=== PATIENT | male | born 1970 | race Caucasian/White ===

== ENCOUNTER 2021-08-20 09:36 | Emergency (ER) | payer SELFPAY ==
[2021-08-20] MEDS ORDERED: FAMOTIDINE 20 MG/2 ML VIAL IV ONE (10:18)
[2021-08-20] MEDS ORDERED: dexAMETHasone 10 MG/ML VIAL ONE (10:18)
[2021-08-20] MEDS ORDERED: NA CHLORIDE 0.9% 1,000 ML ONE (10:18)
--- NOTE | 2021-08-20 12:14 | EDPHYS ---
Physician Documentation [facility] Name: Thierry Shah Age: 50 yrs Sex: Male : 1970 Arrival Date: 08/20/2021 Time: 09:36 Bed 7 Private MD: ED Physician Viky Espino HPI: 08/20 12:11 This 50 yrs old Male presents to ER via Ambulatory with complaints of jmm Allergic Reaction. 12:11 The patient presents with rash. Onset: The symptoms/episode began/occurred gradually, jmm this morning. Associated signs and symptoms: Pertinent positives: rash. Possible causes: The patient has no known obvious cause for the symptoms. The patient has experienced similar episodes in the past. Historical: - Allergies: 09:47 Codeine; aa5 - PMHx: 09:47 GERD; aa5 - PSHx: 09:47 Lymph node removed from leg; aa5 - Immunization history:: Client reports having NOT received the Covid vaccine. - Social history:: Smoking status: Patient denies any tobacco usage or history of. ROS: 12:11 Constitutional: Negative for fever, chills, and weight loss, Cardiovascular: Negative jmm for chest pain, palpitations, and edema, Respiratory: Negative for shortness of breath, cough, wheezing, and pleuritic chest pain. 12:11 Skin: Positive for rash. 12:11 All other systems are negative. Exam: 12:11 Constitutional: This is a well developed, well nourished patient who is awake, alert, jmm and in no acute distress. Head/Face: atraumatic. Eyes: EOMI, no conjunctival erythema appreciated ENT: Moist Mucus Membranes Neck: Trachea midline, Supple Chest/axilla: Normal chest wall appearance and motion. Cardiovascular: Regular rate and rhythm. No edema appreciated Respiratory: Normal respirations, no respiratory distress appreciated Abdomen/GI: Non distended, soft Back: Normal ROM 12:11 Skin: and is diffusely located. 12:11 Neuro: Orientation: is normal, Mentation: is normal, Memory: is normal. 12:11 Psych: Behavior/mood is pleasant, cooperative. Vital Signs: 09:38 Pulse 73; Resp 18 S; Temp 97.8(TE); Pulse Ox 99% on R/A; Weight 113.4 kg (R); Height 5 aa5 ft. 11 in. (180.34 cm) (R); 09:39 BP 108 / 68; ap3 10:29 BP 95 / 77; Pulse 96; Resp 17; Pulse Ox 100% on R/A; ap3 12:03 BP 108 / 68; Pulse 62; Resp 18; Pulse Ox 97% on R/A; ap3 09:38 Body Mass Index 34.87 (113.40 kg, 180.34 cm) aa5 MDM: 09:43 Patient medically screened. [facility] 12:12 Data reviewed: vital signs, nurses notes. Counseling: I had a detailed discussion with jm the patient and/or guardian regarding: the historical points, exam findings, and any diagnostic results supporting the discharge/admit diagnosis, the need for outpatient follow up, to return to the emergency department if symptoms worsen or persist or if there are any questions or concerns that arise at home. Response to treatment: the patient's symptoms have resolved after treatment. 08/20 09:44 Order name: Saline Lock; Complete Time: :57 [facility] Administered Medications: :57 Drug: NS 0.9% 1000 ml Route: IV; Rate: 1 bolus; Site: left antecubital; ss 12:32 Follow up: IV Status: Completed infusion; IV Intake: 1000ml bp 10:00 Drug: Pepcid (famotidine) 20 mg Route: IVP; Site: left antecubital; ap3 12:33 Follow up: Response: Marked relief of symptoms bp 10:00 Drug: Decadron - Dexamethasone 10 mg Route: IVP; Site: left antecubital; ap3 12:33 Follow up: Response: Marked relief of symptoms bp Disposition Summary: 08/20/21 12:13 Discharge Ordered Location: Home [facility] Condition: Stable [facility] Diagnosis - Rash and other nonspecific skin eruption [facility] Followup: m - With: Private Physician - When: 2 - 3 days - Reason: Recheck today's complaints, Continuance of care, Re-evaluation by your physician Discharge Instructions: - Discharge Summary Sheet [facility] - Allergies, Adult [facility] Forms: - Medication Reconciliation Form [facility] - Thank You Letter [facility] - Antibiotic Education jmm - Prescription Opioid Use [facility] Prescriptions: - EpiPen 0.3 mg/0.3 mL Injection auto-injector - inject 0.3 milliliter by INTRAMUSCULAR route as directed as needed for jmm anaphylaxis; 1 Pen Needle; Refills: 0, Product Selection Permitted - Hydroxyzine HCl 25 mg Oral Tablet - take 1 tablet by ORAL route every 6 hours As needed; 30 tablet; Refills: 0, [facility] Product Selection Permitted - Prednisone 20 mg Oral Tablet - take 3 tablets by ORAL route once daily for 5 days; 15 tablet; Refills: 0, [facility] Product Selection Permitted Addendum: 08/22/2021 23:04 Co-signature as Attending Physician, Viky Espino MD PA/DRILL DOCTOR's history reviewed, m a2 patient interviewed, and examined. I agree with assessment and care plan and confirm the diagnosis (es) above. Signatures: Ladarius Tran PA PA jmm Calderon, Audri, RN RN aa5 Rupal Stacy RN RN ss Viky Espino MD MD ma2 Nicole Pendleton RN RN ap3 Semaj Daniels RN bp
--- NOTE | 2021-08-20 12:14 | ER ---
Nurse's Notes [facility] Name: Thierry Shah Age: 50 yrs Sex: Male : 1970 Arrival Date: 08/20/2021 Time: 09:36 Bed 7 Private MD: Diagnosis: Rash and other nonspecific skin eruption Presentation: 08/20 09:38 Chief complaint: Patient states: "I woke up itching all over, my tongue feels swollen, aa5 my chest feels tight, and I almost passed out". Pt reports hx of allergic reactions and states "I took almost half a bottle of children's Benadryl already". Pt currently denies SOB. Equal and unlabored respirations. 09:38 Coronavirus screen: At this time, the client does not indicate any symptoms associated aa5 with coronavirus-19. Ebola Screen: No symptoms or risks identified at this time. Onset: The symptoms/episode began/occurred Started at 0800. Anaphylaxis evaluation, chest pain. Initial Sepsis Screen: Does the patient meet any 2 criteria? No. Patient's initial sepsis screen is negative. Does the patient have a suspected source of infection? No. Patient's initial sepsis screen is negative. Risk Assessment: Do you want to hurt yourself or someone else? Patient reports no desire to harm self or others. Onset of symptoms was August 20, 2021. 09:38 Method Of Arrival: Ambulatory aa5 09:38 Acuity: TRAVIS 2 aa5 Historical: - Allergies: 09:47 Codeine; aa5 - PMHx: 09:47 GERD; aa5 - PSHx: 09:47 Lymph node removed from leg; aa5 - Immunization history:: Client reports having NOT received the Covid vaccine. - Social history:: Smoking status: Patient denies any tobacco usage or history of. Screenin:02 Abuse screen: Denies threats or abuse. Nutritional screening: No deficits noted. ap3 Tuberculosis screening: No symptoms or risk factors identified. Fall Risk None identified. Assessment: 10:01 General: Appears uncomfortable, Behavior is cooperative. Pain: Complains of pain in ap3 generalized burning and itching all over person Quality of pain is described as burning, tingling, Pain began suddenly, upon waking up this morning at 0800. Neuro: Level of Consciousness is awake, alert, obeys commands, Oriented to person, place, time, situation, Appropriate for age Senior Clinician are equal bilaterally Moves all extremities. Gait is steady, Speech is normal, Facial symmetry appears normal. Cardiovascular: Patient's skin is warm and dry. Respiratory: Airway is patent Respiratory effort is even, unlabored, Breath sounds are clear bilaterally. Derm: Rash noted that is on all over person. 10:29 Reassessment: Patient and/or family updated on plan of care and expected duration. Pain ap3 level reassessed. Patient is alert, oriented x 3, equal unlabored respirations, skin warm/dry/pink. 12:03 Reassessment: Patient and/or family updated on plan of care and expected duration. Pain ap3 level reassessed. Patient is alert, oriented x 3, equal unlabored respirations, skin warm/dry/pink. Patient states feeling better. Patient states symptoms have improved. 12:33 Reassessment: PT D/C HOME AMBULATORY WITH FAMILY. DX WITH ALLERGIC REACTION. bp Vital Signs: 09:38 Pulse 73; Resp 18 S; Temp 97.8(TE); Pulse Ox 99% on R/A; Weight 113.4 kg (R); Height 5 aa5 ft. 11 in. (180.34 cm) (R); 09:39 BP 108 / 68; ap3 10:29 BP 95 / 77; Pulse 96; Resp 17; Pulse Ox 100% on R/A; ap3 12:03 BP 108 / 68; Pulse 62; Resp 18; Pulse Ox 97% on R/A; ap3 09:38 Body Mass Index 34.87 (113.40 kg, 180.34 cm) aa5 ED Course: 09:36 Patient arrived in ED. am2 09:38 Nicole Pendleton, INOCENCIA is Primary Nurse. ap3 09:38 Ladarius Tran PA is PHCP. jmm 09:38 Viky Espino MD is Attending Physician. jmm 09:38 Arm band placed on. aa5 09:46 Triage completed. aa5 09:57 Inserted saline lock: 22 gauge in left antecubital area, using aseptic technique. ss 10:02 Patient has correct armband on for positive identification. Bed in low position. Call ap3 light in reach. Side rails up X2. Adult w/ patient. property assessment monitor on. Pulse ox on. NIBP on. Door closed. Noise minimized. 12:10 Nurse Practitioner and/or Physician Foundry Operator to see patient. ap3 12:33 No provider procedures requiring assistance completed. IV discontinued, intact, bp bleeding controlled, No redness/swelling at site. Pressure dressing applied. Administered Medications: 09:57 Drug: NS 0.9% 1000 ml Route: IV; Rate: 1 bolus; Site: left antecubital; ss 12:32 Follow up: IV Status: Completed infusion; IV Intake: 1000ml bp 10:00 Drug: Pepcid (famotidine) 20 mg Route: IVP; Site: left antecubital; ap3 12:33 Follow up: Response: Marked relief of symptoms bp 10:00 Drug: Decadron - Dexamethasone 10 mg Route: IVP; Site: left antecubital; ap3 12:33 Follow up: Response: Marked relief of symptoms bp Intake: 12:32 IV: 1000ml; Total: 1000ml. bp Outcome: 12:13 Discharge ordered by . ken 12:33 Discharged to home ambulatory, with family. bp 12:33 Condition: stable 12:33 Discharge instructions given to patient, family, Instructed on discharge instructions, follow up and referral plans. medication usage, Demonstrated understanding of instructions, follow-up care, medications, Prescriptions given X 3. 12:34 Patient left the ED. bp Signatures: Ladarius Tran PA PA jmm Calderon, Audri, RN RN aa5 Rupal Stacy RN RN ss Nicole Dutton am2 Semaj Daniels RN RN bp Nicole Pendleton RN RN ap3
[2021-08-20 12:41] VITALS: TEMP 97.8
[2021-08-20 12:44] VITALS: BP 108/68; O2SAT 97
== END 2021-08-20 12:34 | disposition home or self-care (01) ==
LOC: ER 09:36
DX: R21 Rash and other nonspecific skin eruption (principal); Z88.5 Allergy status to narcotic agent
CPT/HCPCS: 96361; 96374; 96375; 99284; J1100; J7030

== ENCOUNTER 2021-12-25 07:33 | Emergency (ER) | payer SELFPAY ==
[2021-12-25] MEDS ORDERED: METHYLPREDNISOLONE 125 MG INJ ONE (07:45)
[2021-12-25] MEDS ORDERED: NA CHLORIDE 0.9% 500 ML ONE (07:46)
[2021-12-25] MEDS ORDERED: DIPHENHYDRAMINE 50 MG/ML VIAL ONE (07:46)
[2021-12-25] MEDS ORDERED: FAMOTIDINE 20 MG/2 ML VIAL IV ONE (07:46)
--- NOTE | 2021-12-25 08:56 | EDPHYS ---
Physician Documentation [facility] Name: Thierry Shah Age: 51 yrs Sex: Male : 1970 Arrival Date: 12/25/2021 Time: 07:33 Bed 20 Private MD: ED Physician Fredo Rubalcava HPI: 12/25 07:40 This 51 yrs old Male presents to ER via Unassigned with complaints of Allergic Reaction.rn 07:40 The patient presents with itching, rash, that is diffuse. Onset: The symptoms/episode rn began/occurred this morning. Associated signs and symptoms: Pertinent positives: hives, Pertinent negatives: abdominal pain, chest pain, shortness of breath, Syncope. Possible causes: The patient has no known obvious cause for the symptoms. At home the patient or guardian has treated the symptoms with Benadryl. Severity of symptoms: At their worst the symptoms were mild in the emergency department the symptoms are unchanged. The patient has experienced similar episodes in the past. The patient has not recently seen a physician. Pt reports hives that began this morning, has happened multiple times in past, has had allergy testing and unknown etiology. No fever. No new exposure. No sob or abd pain/vomiting.. Historical: - Allergies: 07:40 Codeine; jh6 - Home Meds: 07:42 Benadryl Oral [Active]; vg1 - PMHx: 07:40 GERD; jh6 07:42 Anxiety; vg1 - PSHx: 07:40 Lymph node removed from leg; jh6 - Immunization history:: Adult Immunizations up to date. - Social history:: Smoking status: Patient denies any tobacco usage or history of. - Family history:: not pertinent. - Hospitalizations: : No recent hospitalization is reported. ROS: 07:40 Constitutional: Negative for fever, chills, and weight loss, Eyes: Negative for injury, rn pain, redness, and discharge, Neck: Negative for injury, pain, and swelling, Cardiovascular: Negative for chest pain, palpitations, and edema, Respiratory: Negative for shortness of breath, cough, wheezing, and pleuritic chest pain, Abdomen/GI: Negative for abdominal pain, nausea, vomiting, diarrhea, and constipation, Back: Negative for injury and pain, MS/Extremity: Negative for injury and deformity, Skin: + diffuse rash Neuro: Negative for headache, weakness, numbness, tingling, and seizure. Exam: 07:40 Constitutional: This is a well developed, well nourished patient who is awake, alert, rn and in no acute distress. Ambulatory to room without difficulty. Head/Face: Normocephalic, atraumatic. Eyes: Periorbital areas with no swelling, redness, or edema. ENT: No stridor. MMM Cardiovascular: Regular rate and rhythm. No pulse deficits. Respiratory: No increased work of breathing, no retractions or nasal flaring. Abdomen/GI: Soft, non-tender Skin: Warm, dry, + diffuse urticaria, no skin sloughing, no bullae, no involvement of MM MS/ Extremity: Pulses equal, no cyanosis Neuro: Awake and alert, GCS 15, oriented to person, place, time, and situation. Cranial nerves II-XII grossly intact. Motor strength 5/5 in all extremities. Sensory grossly intact. Cerebellar exam normal. Normal gait. Vital Signs: 07:39 BP 146 / 87; Pulse 82; Resp 17; Temp 98.0(O); Pulse Ox 100% ; Weight 113.4 kg; Height 5 vg1 ft. 11 in. (180.34 cm); Pain 0/10; 08:30 BP 131 / 84; Pulse 76; Resp 16; Pulse Ox 100% ; Pain 0/10; jh6 07:39 Body Mass Index 34.87 (113.40 kg, 180.34 cm) vg1 MDM: 07:34 Patient medically screened. rn 08:53 Differential diagnosis: urticaria, idiopathic urticaria. Data reviewed: vital signs, rn nurses notes, and as a result, I will discharge patient. Counseling: I had a detailed discussion with the patient and/or guardian regarding: the historical points, exam findings, and any diagnostic results supporting the discharge/admit diagnosis, the need for outpatient follow up, to return to the emergency department if symptoms worsen or persist or if there are any questions or concerns that arise at home. Special discussion: I discussed with the patient/guardian in detail that at this point there is no indication for admission to the hospital. It is understood, however, that if the symptoms persist or worsen the patient needs to return immediately for re-evaluation. ED course: Urticaria resolved, stable vitals, requests to be discharged.. 08:53 Response to treatment: the patient's symptoms have markedly improved after treatment, rn the patient's symptoms have resolved after treatment. 12/25 07:39 Order name: IV Start; Complete Time: 07:53 rn Administered Medications: 07:52 Drug: SOLU-Medrol (methylPrednisoLONE) 125 mg Route: IVP; Site: right antecubital; [facility] 07:53 Drug: Pepcid (famotidine) 20 mg Route: IVP; Site: right antecubital; [facility] 07:53 Drug: Benadryl (diphenhydrAMINE) 50 mg Route: IVP; Site: right antecubital; [facility] 07:53 Drug: NS 0.9% 500 ml Route: IV; Rate: bolus; Site: right antecubital; [facility] Disposition Summary: 12/25/21 08:54 Discharge Ordered Location: Home rn Problem: new rn Symptoms: have improved rn Condition: Stable rn Diagnosis - Idiopathic urticaria rn Followup: rn - With: Private Physician - When: As needed - Reason: Recheck today's complaints, Re-evaluation by your physician Discharge Instructions: - Discharge Summary Sheet deb Aquino rn Forms: - Medication Reconciliation Form rn - Thank You Letter rn - Antibiotic compliance attorney - Prescription Opioid Use rn Prescriptions: - Prednisone 20 mg Oral Tablet - take 3 tablets by ORAL route once daily for 5 days; 15 tablet; Refills: 0, rn Product Selection Permitted Signatures: Fredo Rubalcava MD MD rn Garcia, Victoria RN RN vg1 Nazia Cheatham RN RN jh6 Corrections: (The following items were deleted from the chart) 07:43 07:40 Social history: Smoking status: unknown [facility] vg1
--- NOTE | 2021-12-25 08:56 | ER ---
Nurse's Notes [facility] Name: Thierry Shah Age: 51 yrs Sex: Male : 1970 Arrival Date: 12/25/2021 Time: 07:33 Bed 20 Private MD: Diagnosis: Idiopathic urticaria Presentation: 12/25 07:39 Chief complaint: Patient states: about 15 minutes ago 'hives began to show'; pt appears vg1 to have rash on face, neck, back and torso. Pt states itchiness/burning sensation; states this has happened before and is unsure what causes the reaction. Pt Denies SOB. Coronavirus screen: Vaccine status: Patient reports being unvaccinated. Client denies travel out of the [place] in the last 14 days. Ebola Screen: Patient negative for fever greater than or equal to 101.5 degrees Fahrenheit, and additional compatible Ebola Virus Disease symptoms. Onset: The symptoms/episode began/occurred suddenly, 15 minute(s) ago. Anaphylaxis evaluation, no signs or symptoms of anaphylaxis were noted. Initial Sepsis Screen: Does the patient meet any 2 criteria? No. Patient's initial sepsis screen is negative. Does the patient have a suspected source of infection? No. Patient's initial sepsis screen is negative. Risk Assessment: Do you want to hurt yourself or someone else? Patient reports no desire to harm self or others. Onset of symptoms was December 25, 2021. 07:39 Method Of Arrival: Ambulatory vg1 07:39 Acuity: TRAVIS 3 vg1 07:40 Risk Assessment: Do you want to hurt yourself or someone else?. [facility] Triage Assessment: 07:42 General: Appears in no apparent distress. uncomfortable, Behavior is calm, cooperative. vg1 Respiratory: Airway is patent Respiratory effort is even, unlabored. Derm: Rash noted that is itchy, raised, urticaria. Historical: - Allergies: 07:40 Codeine; [facility] - Home Meds: 07:42 Benadryl Oral [Active]; vg1 - PMHx: 07:40 GERD; [facility] 07:42 Anxiety; 1 - PSHx: 07:40 Lymph node removed from leg; [facility] - Immunization history:: Adult Immunizations up to date. - Social history:: Smoking status: Patient denies any tobacco usage or history of. - Family history:: not pertinent. - Hospitalizations: : No recent hospitalization is reported. Screenin:44 Abuse screen: Denies threats or abuse. Nutritional screening: No deficits noted. vg1 Tuberculosis screening: No symptoms or risk factors identified. Fall Risk No fall in past 12 months (0 pts). No secondary diagnosis (0 pts). Ambulatory Aid- None/Bed Rest/Nurse Assist (0 pts). Gait- Normal/Bed Rest/Wheelchair (0 pts) Mental Status- Oriented to own ability (0 pts). Total Arriola Fall Scale indicates No Risk (0-24 pts). Assessment: 07:38 General: Appears uncomfortable, well groomed, well nourished, Behavior is calm, jh6 cooperative, anxious. Pain: Denies pain. Respiratory: Airway is patent Respiratory effort is even, unlabored, Breath sounds are clear. Derm: Rash noted that is itchy, papular, red, raised, on neck and back. 08:00 Reassessment: Patient is alert, oriented x 3, equal unlabored respirations, skin jh6 warm/dry/pink. STATED THAT THE ITCHING AND BURNING HAS DECREASED. Patient states symptoms have improved. 08:40 Reassessment: Patient and/or family updated on plan of care and expected duration. Pain jh6 level reassessed. Patient denies pain at this time. Patient states feeling better. Patient states symptoms have improved. General: Appears in no apparent distress. comfortable, Behavior is calm, cooperative, redness and swelling to back and arms decreased. minimal amount of raise whelps still present to creases of elbows. Vital Signs: 07:39 BP 146 / 87; Pulse 82; Resp 17; Temp 98.0(O); Pulse Ox 100% ; Weight 113.4 kg; Height 5 vg1 ft. 11 in. (180.34 cm); Pain 0/10; 08:30 BP 131 / 84; Pulse 76; Resp 16; Pulse Ox 100% ; Pain 0/10; jh6 07:39 Body Mass Index 34.87 (113.40 kg, 180.34 cm) vg1 ED Course: 07:33 Patient arrived in ED. as 07:34 Fredo Rubalcava MD is Attending Physician. rn 07:38 Nazia Cheatham RN is Primary Nurse. jh6 07:40 Inserted saline lock: 20 gauge in right antecubital area, using aseptic technique. ic1 Blood collected. 07:42 Triage completed. vg1 07:42 Arm band placed on. vg1 07:44 Patient has correct armband on for positive identification. Placed in gown. Bed in low vg1 position. Call light in reach. Side rails up X 1. Adult w/ patient. 08:57 IV discontinued, intact, bleeding controlled, No redness/swelling at site. Pressure [facility] dressing applied. 08:57 No provider procedures requiring assistance completed. [facility] Administered Medications: 07:52 Drug: SOLU-Medrol (methylPrednisoLONE) 125 mg Route: IVP; Site: right antecubital; [facility] 07:53 Drug: Pepcid (famotidine) 20 mg Route: IVP; Site: right antecubital; [facility] 07:53 Drug: Benadryl (diphenhydrAMINE) 50 mg Route: IVP; Site: right antecubital; [facility] 07:53 Drug: NS 0.9% 500 ml Route: IV; Rate: bolus; Site: right antecubital; [facility] Outcome: 08:54 Discharge ordered by . rn 08:56 Discharged to home ambulatory. [facility] 08:56 Condition: improved 08:56 Discharge instructions given to patient, family, Instructed on discharge instructions, follow up and referral plans. Demonstrated understanding of instructions, follow-up care, medications, Prescriptions given X 1. 09:14 Patient left the ED. [facility] Signatures: Jamia Harper Roman, MD MD rn Garcia, Victoria RN RN vg1 Nazia Cheatham RN RN [facility] Jennifer Richard RN RN ic1 Corrections: (The following items were deleted from the chart) 07:43 07:40 Social history: Smoking status: unknown [facility]
[2021-12-25 09:19] VITALS: TEMP 98; O2SAT 100
[2021-12-25 09:20] VITALS: BP 131/84
== END 2021-12-25 09:14 | disposition home or self-care (01) ==
LOC: ER 07:33
DX: L50.1 Idiopathic urticaria (principal); Z88.5 Allergy status to narcotic agent
CPT/HCPCS: 96374; 96375; 99284; J1200; J2930; J7040